=== PATIENT | female | born 2000 | race African-American/Black ===

== ENCOUNTER 2020-07-30 09:53 | Emergency (ER) | payer OTHER, SELFPAY ==
[2020-07-30] VITALS (7 sets, daily range): BP systolic 108–128; BP diastolic 71–87; PULSE 70–99; RESP 18; TEMP 36.6; O2SAT 96–100
--- NOTE | ~2020-07-30 | US_ITS ---
EXAMINATION: US OB <= 14 weeks fetus DATE: 07/30/2020 10:56 INDICATION: Recent . Nausea, vomiting and pain. Patient stopped bleeding. TECHNIQUE: Real-time transabdominal obstetric ultrasound. FINDINGS: No prior studies for comparison. The uterus measures 11.7 x 8.6 x 7.5 cm. There is an intrauterine gestational sac, with pole id entified. The crown rump length measures 3.46 cm, which correlates with a estimated gestational age of 10 weeks 3 days. heart tones are identified measuring 176. IMPRESSION: 1. SL IUP with an EGA of 10 weeks, 3 days (EDC by current ultrasound of 02/22/2021). Reviewed, dictated and finalized at location A. IMPRESSION: 1. SL IUP with an EGA of 10 weeks, 3 days (EDC by current ultrasound of 02/23/20).
[2020-07-30] MEDS: SODIUM CHLORIDE 0.9% IV 1,000 ML 999 ML IV CONT (10:21)
--- NOTE | 2020-07-30 10:34 | ED.NAVMDI ---
HPI - Nausea/Vomiting/Diarrhea General Chief complaint: Nausea/Vomiting/Diarrhea <Lisy Calvillo PA-C - Last Filed: 07/30/20 12:58> Stated complaint: n/v, weakness <Lisy Calvillo PA-C - Last Filed: 07/30/20 12:58> Time Seen by Provider: 07/30/20 10:03 <Lisy Calvillo PA-C - Last Filed: 07/30/20 12:58> Source: patient <ABBY Bar Last Filed: 07/30/20 12:58> Mode of arrival: ambulatory <ABBY Bar Last Filed: 07/30/20 12:58> Limitations: no limitations <Lisy Calvillo PA-C - Last Filed: 07/30/20 12:58> History of Present Illness HPI Narrative: This is a 19-year-old female that presents to the emergency department for nausea and vomiting x 10 days. Reports about 10 days ago she had a medically induced . Reports she was 9 weeks at the time. Reports since she is continued to have nausea and vomiting. Also reports pelvic cramping and continued intermittent vaginal bleeding. Her OB is Jumana at [facility] [place]. She had the at [facility]. Denies fever, dysuria, or hematuria. <Lisy Calvillo PA-C - Last Filed: 07/30/20 12:58> Related Data Allergies/Adverse reactions: Allergies Allergy/AdvReac Type Severity Reaction Status Date / Time No Known Allergies Allergy Verified 07/30/20 10:03 <Lisy Calvillo PA-C - Last Filed: 07/30/20 12:58> Review of Systems Review of Systems: Narrative: CONSTITUTIONAL: Denies fever GASTROINTESTINAL: Reports abdominal/pelvic pain, nausea, vomiting GENITOURINARY: Denies dysuria or hematuria. <Lisy Calvillo PA-C - Last Filed: 07/30/20 12:58> All systems reviewed & are unremarkable except as noted in HPI and below <ABBY Bar Last Filed: 07/30/20 12:58> [facility] Past Medical History Medical History: Medical History (Updated 07/30/20 @ 12:58 by Lisy Calvillo PA-C) No active medical problems <Lisy Calvillo PA-C - Last Filed: 07/30/20 12:58> Social History Social History: Social History (Updated 07/30/20 @ 10:40 by Lisy Calvillo PA-C) Substance use: never Gender identity (if verbalized by the patient): Female <Lisy Calvillo PA-C - Last Filed: 07/30/20 12:58> Exam Narrative: Exam Narrative: GENERAL: Well-appearing, well-nourished, and in no acute distress. HEAD: Normocephalic, atraumatic. EYES: EOMI. CHEST: Clear to auscultation. No respiratory distress. No wheezes rales or rhonchi HEART: Regular rate and rhythm. No murmur heard. Normal peripheral pulses. ABDOMEN: Soft, nondistended, normal active bowel sounds. Mild tenderness to palpation of the lower abd/pelvis without guarding. No CVA tenderness EXTREMITIES: Normal range of motion. No edema. SKIN: Warm, dry, no rash. NEURO: No focal deficits. Alert and oriented x3. PSYCH: Normal mood and affect PELVIC: Normal-appearing cervix. No active bleeding <Lisy Calvillo PA-C - Last Filed: 07/30/20 12:58> Course Consultations Consultation #1: Spoke with Dr. Jeong about patient and work-up who will follow-up in clinic if needed <Lisy Calvillo PA-C - Last Filed: 07/30/20 12:58> Date: 07/30/20 <Lisy Calvillo PA-C - Last Filed: 07/30/20 12:58> Time: 12:55 <Lisy Calvillo PA-C - Last Filed: 07/30/20 12:58> Vital Signs Vital signs: Vital Signs Temperature 36.6 C 07/30/20 10:02 Pulse Rate 99 07/30/20 10:02 Respiratory Rate 18 07/30/20 10:02 Blood Pressure 128/81 07/30/20 10:02 Pulse Oximetry 100 07/30/20 10:02 Temperature 36.6 C 07/30/20 11:08 Pulse Rate 72 07/30/20 13:16 Respiratory Rate 18 07/30/20 13:16 Blood Pressure 124/79 07/30/20 13:16 Pulse Oximetry 96 07/30/20 13:16 <Lisy Calvillo PA-C - Last Filed: 07/30/20 12:58> Vital Signs Temperature 36.6 C 07/30/20 10:02 Pulse Rate 99 07/30/20 10:02 Respiratory Rate 18 07/30/20 10:02 Blood Pressure 128/81 07/30/20 10:02 Pulse Ox
[2020-07-30 10:38] LABS: Basophils Percent Auto 0.6 % (0.2-1.2); Eosinophils Percent Auto 0.2 % (0-4.4); Hematocrit 37.4 % (37.0-47.0); Hemoglobin 12.7 g/dL (12.0-15.0); Immature Granulocyte Absolute 0.01 K/mm3 (0.00-0.031); Immature Granulocyte Percent A 0.2 % (0-0.5); Lymphocytes Absolute Auto 1.89 K/mm3 (0.9-3.2); Lymphocytes Percent Auto 37.5 % (18.3-44.2); Mean Corpuscular Hemoglobin 30.5 pg (26-34); Mean Corpuscular Volume 89.7 fl (80-100); Mean Platelet Volume 9.9 fl (7.4-10.4); Monocytes Absolute Auto 0.4 K/mm3 (0.1-0.6); Monocytes Percent Auto 6.9 % (2.6-8.5); Neutrophils Absolute Auto 2.8 K/mm3 (1.3-6.7); Neutrophils Percent Auto 54.6 % (45.5-73.1); Platelet Count Result 352 k/mm3 (150-375); Red Blood Count 4.17 M/mm3 (4.2-5.4); Red Cell Distribution Width 14.8 % (11.5-14.5)
[2020-07-30] MEDS: ONDANSETRON INJ 4 MG/2 ML VIAL IV PUSH (10:39)
[2020-07-30] MEDS: FAMOTIDINE 20 MG/2 ML VIAL IV PUSH (10:39)
[2020-07-30 10:42] LABS: Add Urine Microscopic? YES; Amorphous Sediment Urine Moderate; Appearance Urine Cloudy (Clear); Bacteria Urine Trace /hpf; Bilirubin Urine Negative (Negative); Blood Urine Negative (Negative); Color Urine Yellow (Yellow); Glucose Urine UA Negative (Negative); Ketones Urine Negative (Negative); Leukocyte Esterase Ur Negative LEU/UL (Negative); Mucus Urine Rare /lpf; Nitrate Urine Negative (Negative); Protein Urine 1+ mg/dL (Negative); Specific Grav Ur 1.018 (1.001-1.035); Squamous Epithelial Cell Urine Moderate /hpf (Few); Urobilinogen Urine Negative mg/dL (<2.0); WBC Urine 0-3 /hpf
[2020-07-30 11:31] LABS: Alanine Aminotransferase 8 U/L (4-35); Alkaline Phosphatase 44 U/L (38-126); Anion Gap 8 mmol/L (8-16); Aspartate Amino Transferase 17 U/L (14-36); Bilirubin,Total 0.4 mg/dL (0.2-1.3); Blood Urea Nitrogen 5 mg/dL (7-17); Calcium 8.5 mg/dL (8.4-10.2); Carbon Dioxide 24 mmol/L (22-30); Chloride 104 mmol/L (98-107); Estimated CRCL calculation 96 ml/min; Estimated Glomerular Filt Rate > 60; Glucose 73 mg/dL (65-105); Lipase 92 U/L (23-300); Potassium 3.6 mmol/L (3.4-5.0); Sodium 136 mmol/L (137-145)
[2020-07-30 12:12] LABS: INR 1.2; Partial Thromboplastin Time 28.8 SECONDS (22.3-36.8); Prothrombin Time 14.9 Seconds (11.1-14.7)
== END 2020-07-30 13:39 | disposition home or self-care (01) ==
PROVIDERS: Physician Assistant; Emergency Provider Emergency Medicine
DX: O21.9 Vomiting of pregnancy, unspecified (principal); Z3A.10 10 weeks gestation of pregnancy
CPT/HCPCS: 36415; 76801; 80053; 81001; 81025; 83690; 84702; 85025; 85461; 85610; 85730; 96361; 96374; 96375; 99284; J0131; J2405; J7030

== ENCOUNTER 2020-11-27 09:47 | Emergency (ER) | payer OTHER, SELFPAY ==
[2020-11-27 09:55] VITALS: BP 100/79; PULSE 93; RESP 18; TEMP 36.6; O2SAT 95
[2020-11-27] MEDS: cefTRIAXone 250 MG VIAL 500 MG IM (11:47)
--- NOTE | 2020-11-27 12:10 | ED.ABDPAIN ---
HPI - Abdominal Pain General Chief Complaint: Urogenital-Female Stated Complaint: std check Time Seen by Provider: 11/27/20 10:04 Source: patient Mode of arrival: ambulatory Limitations: no limitations History of Present Illness HPI narrative: Patient is a 20-year-old female who presents to emergency department for evaluation of concern for STD noting she had a partner that instructed her that he has been having drainage from the penis patient presents wanting testing and treating for STDs patient denies any symptoms or similar occurrence in the past patient was not using production patient has an IUD Related Data Home Medications Medication Instructions Recorded Confirmed No Home Medications 11/27/20 11/27/20 Allergies Allergy/AdvReac Type Severity Reaction Status Date / Time No Known Allergies Allergy Unverified 11/27/20 09:58 Review of Systems Review of Systems: All systems reviewed & are unremarkable except as noted in HPI and below PMFSH Past Medical History Medical History No active medical problems Social History Social History Substance use: never Gender identity (if verbalized by the patient): Female Exam Narrative: Exam Narrative: GENERAL: Well-appearing, well-nourished, and in no acute distress. HEAD: Normocephalic, atraumatic. EYES: PERRLA and EOMI. ENT: Nares clear, no rhinorrhea or epistaxis. Mucous membranes moist. CHEST: Clear to auscultation. No respiratory distress. No wheezes rales or rhonchi HEART: Regular rate and rhythm. No murmur heard. Normal peripheral pulses. ABDOMEN: Soft, nontender, nondistended FEMALE GENITOURINARY: Patient with odor and pink-tinged discharge in the vaginal vault otherwise unremarkable exam EXTREMITIES: Normal range of motion. No edema. SKIN: Warm, dry, no rash. NEURO: No focal deficits. Alert and oriented x3. PSYCH: Normal mood and affect. 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 Vital Signs Vital signs: Vital Signs Temperature 97.8 F 11/27/20 09:55 Pulse Rate 93 11/27/20 09:55 Respiratory Rate 18 11/27/20 09:55 Blood Pressure 100/79 11/27/20 09:55 Pulse Oximetry 95 11/27/20 09:55 Temperature 97.8 F 11/27/20 09:55 Pulse Rate 93 11/27/20 09:55 Respiratory Rate 18 11/27/20 09:55 Blood Pressure 100/79 11/27/20 09:55 Pulse Oximetry 95 11/27/20 09:55 MDM - Abdominal Pain MDM Narrative Medical decision making narrative: Patient with urethritis trichomoniasis will be discharged home with outpatient follow-up with gynecology given reasons to return afebrile nontoxic-appearing no distress was given Rocephin in the emergency department will be sent home doxycycline and Flagyl Lab Data Labs: Lab Results 11/27/20 11/27/20 Range/Units 10:22 10:22 C.trachomatis RNA (TMA) Pending N.gonorrhoeae RNA (TMA) Pending Trichomonas Direct ID Positive (Negative) Discharge Plan Discharge Clinical Impression: Trichomoniasis Patient Disposition: Home, Self-Care Condition: Stable Instructions: Antibiotic Form, Trichomoniasis (ED) Additional Instructions: Follow up with gynecology in the next 3 days for reevaluation and culture results Antibiotics as prescribed. Increase fluid intake. Tylenol and Motrin for pain and or fever if needed. Follow up with your doctor for further care. Call your doctor or return to the emergency department if needed for worsening symptoms or problems, especially if you have persistent high fever, vomiting, inability to urinate, weakness, blood in your urine, change in mental status, or other serious concerns. Prescriptions: New doxycycline hyclate 100 mg capsule 100 mg PO Q12H 7 Days Qty: 14 RF: 0 metronidazole [Flagyl] 500 mg tablet
[2020-11-27 12:30] VITALS: BP 108/78; PULSE 78; RESP 18; O2SAT 99
== END 2020-11-27 13:10 | disposition home or self-care (01) ==
PROVIDERS: Emergency Medicine Emergency Medical Services; Emergency Provider Emergency Medicine
DX: A59.03 Trichomonal cystitis and urethritis (principal); Z97.5 Presence of (intrauterine) contraceptive device
CPT/HCPCS: 81025; 87070; 87077; 87491; 87591; 87808; 96372; 99284; J0696

== ENCOUNTER 2022-10-30 09:38 | Emergency (ER) | payer OTHER, SELFPAY ==
[2022-10-30 09:54] VITALS: BP 94/67; PULSE 83; RESP 14; TEMP 37; O2SAT 100
--- NOTE | 2022-10-30 11:59 | ED.FEMALEGU ---
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 Patient states that she had unprotected sex with a new partner about a month ago and would like to be screened. She is not having any symptoms. Denies chance of . Related Data Home Medications Medication Instructions Recorded Confirmed No Home Medications 11/27/20 11/27/20 Allergies Allergy/AdvReac Type Severity Reaction Status Date / Time No Known Allergies Allergy Verified 10/30/22 11:13 Review of Systems Review of Systems: Gen: Denies fevers or chills Eyes: Denies eye pain or visual change ENT: Denies congestion Respiratory: Denies shortness of breath or cough CV: Denies chest pain or palpitations GI: Denies abdominal pain nausea, emesis or diarrhea denies burning, urgency, frequency or hematuria Musculoskeletal: Denies back pain or muscle pain Neuro: Denies numbness, tingling, weakness or focal weakness Skin: Denies rash Except as documented, all other systems reviewed and negative [facility] Past Medical History Medical History No active medical problems Social History Social History Substance use: never Gender identity (if verbalized by the patient): Female Exam Narrative: Gen: Alert oriented, no acute distress Eyes: EOMI, no icterus Pulm: Respirations even and unlabored, symmetric thorax expansion, no audible stridor or visible cyanosis CV: Regular rate per telemetry GI: No distension, no voluntary/involuntary guarding : scant amount of white vaginal discharge in the vaginal vault. No cervical friability or lesions. No cervical motion tenderness. Neuro: AOx4, moves all extremities without apparent difficulty or weakness, follows commands Skin: No jaundice, no visible bruising, rashes, lesions or wounds on exposed skin Psych: Normal mood/affect, insight/judgement good, adequate fund of knowledge, recent/remote memory intact Course Vital Signs Vital signs: Vital Signs Temperature 98.6 F 10/30/22 09:54 Pulse Rate 83 10/30/22 09:54 Respiratory Rate 14 10/30/22 09:54 Blood Pressure 94/67 L 10/30/22 09:54 Pulse Oximetry 100 10/30/22 09:54 Oxygen Delivery Room Air 10/30/22 09:54 Temperature 98.6 F 10/30/22 09:54 Pulse Rate 88 10/30/22 12:17 Respiratory Rate 14 10/30/22 12:17 Blood Pressure 101/66 10/30/22 12:17 Pulse Oximetry 97 10/30/22 12:17 Oxygen Delivery Room Air 10/30/22 09:54 MDM - Female Genitourinary MDM Narrative Medical decision making narrative: 22-year-old female here for STI check as she has had a new sexual partner. She is asymptomatic. Pelvic exam without evidence of PID; scant white discharge noted. Swabs were taken, patient understands she needs to follow-up on the results of these and will not be treated today given that she does not have symptoms. She is agreeable to the plan. Lab Data Labs: Lab Results 10/30/22 10/30/22 Range/Units 11:51 11:51 C.trachomatis RNA (TMA) Pending N.gonorrhoeae RNA (TMA) Pending Trichomonas Direct ID Negative (Negative) UCG Bedside Result Negative Reference Range: Negative Discharge Plan Discharge Clinical Impression: Encounter for screening for bacterial sexually transmitted disease Patient Disposition: Home, Self-Care Condition: Stable Instructions: Antibiotic Form, Safe Sex Practices (ED) Additional Instructions: You had tests for sexually transmitted diseases today. Please abstain from sexual intercourse until the results come back. These will come back in about 3 to 5 days, you will need to follow-up on the results of these portal and
[2022-10-30 12:17] VITALS: BP 101/66; PULSE 88; RESP 14; O2SAT 97
== END 2022-10-30 12:19 | disposition home or self-care (01) ==
PROVIDERS: Emergency Provider Physician Assistant; PCP Nurse Practitioner Adult Health
DX: Z11.3 Encounter for screening for infections with a predominantly sexual mode of transmission (principal)
CPT/HCPCS: 81025; 87070; 87077; 87491; 87591; 87808; 99284

== ENCOUNTER 2023-12-14 09:23 | Emergency (ER) | payer MEDICAID, SELFPAY ==
--- NOTE | ~2023-12-14 | XR_ITS ---
EXAMINATION: XR chest 2V DATE: 12/14/2023 11:18 INDICATION: Cough TECHNIQUE: PA and lateral views of the chest are obtained. COMPARISON: 07/10/2012 FINDINGS: The lungs are free of acute opacities. No pleural effusion or pneumothorax. The cardiomedia stinal silhouette is normal. There are 50 degrees of lower thoracic dextroscoliosis. IMPRESSION: 1. No acute cardiopulmonary abnormality. 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
[2023-12-14 09:35] VITALS: BP 114/78; PULSE 82; RESP 16; TEMP 36.4; O2SAT 100
[2023-12-14 10:30] LABS: Influenza A QL RT-PCR Negative (Negative); Influenza B QL RT-PCR Negative (Negative); RSV RNA, RT-PCR Negative (Negative); SARS-CoV-2 RNA PCR Negative (Negative)
[2023-12-14 11:30] VITALS: BP 111/82; PULSE 71; RESP 18; TEMP 36.3; O2SAT 100
--- NOTE | 2023-12-14 12:02 | ED.URI ---
HPI - URI/Sore Throat General Chief Complaint: Upper Respiratory Infection Stated Complaint: uri Time Seen by Provider: 12/14/23 11:03 Source: patient Mode of arrival: ambulatory Limitations: no limitations History of Present Illness HPI Narrative: This is a 23-year-old female that presents to the emergency department for cold symptoms present over the last couple of days. Reports rhinorrhea, congestion, sneezing, sore throat and cough. Reports similar symptoms in her child. Denies fevers or shortness of breath. Related Data Home Medications Medication Instructions Recorded Confirmed No Home Medications 11/27/20 11/27/20 Allergies Allergy/AdvReac Type Severity Reaction Status Date / Time No Known Allergies Allergy Verified 10/30/22 11:13 Review of Systems Review of Systems: CONSTITUTIONAL: Denies fever ENT: Reports rhinorrhea, congestion, sore throat RESPIRATORY: Reports cough. Denies dyspnea. All systems reviewed & are unremarkable except as noted in HPI and below PMFSH Past Medical History Medical History No active medical problems Social History Social History Substance use: never Gender identity (if verbalized by the patient): Female Exam Narrative: GENERAL: Well-appearing, well-nourished, and in no acute distress. HEAD: Normocephalic, atraumatic. EYES: EOMI. ENT: Nares clear, no rhinorrhea or epistaxis. Mucous membranes moist. Oropharynx with mild redness, without tonsillar hypertrophy, exudate or other lesions. Bilateral TMs pearly samson non-bulging NECK: Supple. No adenopathy or masses. CHEST: Clear to auscultation. No respiratory distress. No wheezes rales or rhonchi HEART: Regular rate and rhythm. No murmur heard. Normal peripheral pulses. EXTREMITIES: Normal range of motion. No edema. SKIN: Warm, dry, no rash. NEURO: No focal deficits. Alert and oriented x3. PSYCH: Normal mood and affect Course Course Emergency Course: Patient updated on her workup and agrees with plan of care Vital Signs Vital signs: Vital Signs Temperature 97.5 F L 12/14/23 09:35 Pulse Rate 82 12/14/23 09:35 Respiratory Rate 16 12/14/23 09:35 Blood Pressure 114/78 12/14/23 09:35 Pulse Oximetry 100 12/14/23 09:35 Oxygen Delivery Room Air 12/14/23 09:35 Temperature 97.4 F L 12/14/23 11:30 Pulse Rate 71 12/14/23 11:30 Respiratory Rate 18 12/14/23 11:30 Blood Pressure 111/82 12/14/23 11:30 Pulse Oximetry 100 12/14/23 11:30 Oxygen Delivery Room Air 12/14/23 11:29 MDM - URI/Sore Throat MDM Narrative Medical decision making narrative: Patient presents to the emergency department for cold symptoms present over the last couple of days. She is afebrile and nontoxic appearing. Her lungs are clear on exam. Oxygen saturation is normal on room air. Influenza, RSV, and COVID screens are negative. Chest x-ray without acute cardiopulmonary abnormality. Patient updated on her workup. Instructed on further care of viral infection. She is to follow up with primary provider. She was given warnings to return to the ER Differential Diagnosis Differential diagnosis: Likely upper respiratory infection, sinusitis, viral infection, influenza and other (COVID, RSV, pneumonia) Lab Data Attestation: I reviewed the patient's lab results. Labs: Lab Results 12/14/23 Range/Units 09:42 Influenza A (RT-PCR) Negative (Negative) Influenza B (RT-PCR) Negative (Negative) RSV (RT-PCR) Negative (Negative) SARS-CoV-2 RNA (RT-PCR) Negative (Negative) Critical Care Time Critical Care Time Critical Care Time: No Discharge Plan Discharge Clinical Impression: Upper respiratory infection Qualifiers: URI type: unspecified viral URI Qualified Code(s): J06.9 - Acute upper respiratory infection, unspecified Patient Disposition: H
== END 2023-12-14 12:35 | disposition home or self-care (01) ==
PROVIDERS: Emergency Medicine; Emergency Provider Physician Assistant; PCP Nurse Practitioner Adult Health
DX: J06.9 Acute upper respiratory infection, unspecified (principal); Z20.822 Contact with and (suspected) exposure to COVID-19
CPT/HCPCS: 71046; 87637; 99283

== ENCOUNTER 2024-02-09 16:29 | Emergency (ER) | payer MEDICAID, SELFPAY ==
[2024-02-09 16:33] VITALS: BP 107/79; PULSE 70; RESP 16; TEMP 36.6; O2SAT 100
[2024-02-09 18:54] VITALS: BP 128/85; PULSE 63; RESP 20; O2SAT 100
--- NOTE | 2024-02-09 18:57 | ED.ALCOHOL ---
HPI - Alcohol General Chief Complaint: Alcohol Stated Complaint: etoh poisoning Time Seen by Provider: 02/09/24 18:49 History of Present Illness HPI narrative: 23-year-old female presents to emergency department for concerns for alcohol poisoning. Patient states she drank 3 strawberry lemonade alcoholic drinks yesterday. States this morning she developed nausea, vomiting and diffuse intermittent abdominal cramping. States she had some abdominal cramping earlier but that has since resolved and she is no longer having abdominal pain. States she is having difficulty keeping down foods and drinks secondary to nausea and vomiting. She denies dysuria or hematuria, diarrhea, cough or congestion, fever, sore throat or otalgia. LMP 1 day ago. No prior abdominal surgeries. Related Data Allergies Allergy/AdvReac Type Severity Reaction Status Date / Time No Known Allergies Allergy Verified 02/09/24 16:36 Review of Systems Review of Systems: CONSTITUTIONAL: Denies fever, chills, or sweats. EYES: Denies visual changes, redness, or discharge. ENT: Denies rhinorrhea, congestion, sore throat, or otalgia. CARDIOVASCULAR: Denies chest pain, palpitations, or edema. RESPIRATORY: Denies cough or dyspnea. GASTROINTESTINAL: See HPI GENITOURINARY: Denies dysuria or hematuria. SKIN: Denies rash or itching. MUSCULOSKELETAL: Denies back pain, joint pain, or myalgia. NEUROLOGIC: Denies headache, numbness, or weakness. PSYCHIATRIC: Denies anxiety or depression. PMFSH Past Medical History Medical History No active medical problems Social History Social History Substance use: never Gender identity (if verbalized by the patient): Female Exam Narrative: GENERAL: Well-appearing, well-nourished, and in no acute distress. Nontoxic and well appearing on exam. HEAD: Normocephalic, atraumatic. EYES: PERRLA and EOMI. ENT: Nares clear, no rhinorrhea or epistaxis. Mucous membranes dry NECK: Supple. CHEST: Clear to auscultation. No respiratory distress. HEART: Regular rate and rhythm. No murmur heard. Normal peripheral pulses. ABDOMEN: Soft, nontender, nondistended, normal active bowel sounds. No rebound, guarding or rigidity. No CVA tenderness. EXTREMITIES: Normal range of motion. No edema. SKIN: Warm, dry, no rash. NEURO: No focal deficits. 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 She is reporting nausea and vomiting and diffuse intermittent abdominal cramping today. Vital stable. She is well-appearing and nontoxic exam, however does appear dry. Abdomen is soft and nontender. CBC is without leukocytosis. Chemistries show an AST of 48 ALT of 44. There is normal alk-phos and bilirubin. She has no tenderness in the right upper quadrant. UA with 3+ ketones, 3+ protein, 1+ bacteria. No wbc's, leuk esterase or nitrates. She denies signs or symptoms of UTI. Her lactic acid is normal at 1.1. negative. Labs and imaging discussed with patient and family at bedside. She received IV fluids, Zofran and Pepcid with significant improvement. She is tolerating p.o. intake. Feels she is safe for outpatient management. Will provide p.o. Zofran, encourage increased fluid intake and close follow-up with her PCP she has an ap
[2024-02-09] MEDS: ONDANSETRON INJ 4 MG/2 ML VIAL IV PUSH (19:12)
[2024-02-09] MEDS: FAMOTIDINE 20 MG/2 ML VIAL IV PUSH (19:12)
[2024-02-09] MEDS: SODIUM CHLORIDE 0.9% IV 1,000 ML 999 ML IV CONT (19:12)
[2024-02-09 19:19] LABS: Basophils Percent Auto 0.5 % (0.2-1.2); Hemoglobin 13.8 g/dL (12.0-15.0); Immature Granulocyte Absolute 0.01 K/mm3 (0.00-0.031); Immature Granulocyte Percent A 0.2 % (0-0.5); Lymphocytes Absolute Auto 1.23 K/mm3 (0.9-3.2); Lymphocytes Percent Auto 20.5 % (18.3-44.2); Mean Corpuscular HGB Conc 33.7 g/dl (32-36); Mean Corpuscular Hemoglobin 31.5 pg (26-34); Mean Corpuscular Volume 93.6 fl (80-100); Monocytes Absolute Auto 0.3 K/mm3 (0.1-0.6); Monocytes Percent Auto 4.2 % (2.6-8.5); Neutrophils Absolute Auto 4.5 K/mm3 (1.3-6.7); Neutrophils Percent Auto 74.6 % (45.5-73.1); Platelet Count Result 253 k/mm3 (150-375); Red Blood Count 4.38 M/mm3 (4.2-5.4); Red Cell Distribution Width 13.2 % (11.5-14.5)
[2024-02-09 19:28] LABS: Lactic Acid Reflex 1.1 mmol/L (0.7-2.0)
[2024-02-09 19:29] LABS: Alanine Aminotransferase 44 U/L (6-35); Albumin Level 4.8 g/dL (3.5-5.1); Alkaline Phosphatase 57 U/L (38-126); Anion Gap 8 mmol/L (4-12); Aspartate Amino Transferase 48 U/L (14-36); Bilirubin,Total 0.8 mg/dL (0.2-1.3); Blood Urea Nitrogen 13 mg/dL (7-17); Calcium 9.9 mg/dL (8.4-10.2); Carbon Dioxide 25 mmol/L (22-30); Chloride 108 mmol/L (98-107); Estimated CRCL calculation 72 ml/min; Estimated Glomerular Filt Rate > 60; Glucose 93 mg/dL (65-110); Lipase 53 U/L (23-300); Potassium 3.6 mmol/L (3.4-5.0); Sodium 141 mmol/L (137-145)
[2024-02-09 20:19] VITALS: BP 109/70; PULSE 76; RESP 20; O2SAT 100
[2024-02-09 20:51] LABS: Appearance Urine Cloudy (Clear); Bacteria Urine 1+ /hpf; Bilirubin Urine Negative (Negative); Blood Urine Negative (Negative); Color Urine Yellow (Yellow); Glucose Urine UA Negative (Negative); Ketones Urine 3+ mg/dL (Negative); Leukocyte Esterase Ur Negative LEU/UL (Negative); Nitrate Urine Negative (Negative); Non Pathogenic Casts 0-2; Protein Urine 3+ mg/dL (Negative); RBC Urine 0-2 /hpf (0-2); Squamous Epithelial Cell Urine Occasional /hpf (Few); WBC Urine 0-5 /hpf (0-3); pH Urine 6.5 (5.0-9.0)
[2024-02-09 20:57] LABS: Add Urine Microscopic? YES; Specific Grav Ur 1.033 (1.001-1.035)
[2024-02-09 21:36] VITALS: PULSE 66
== END 2024-02-09 21:36 | disposition home or self-care (01) ==
PROVIDERS: Emergency Provider Physician Assistant; Referring Provider Family Medicine
DX: K52.9 Noninfective gastroenteritis and colitis, unspecified (principal)
CPT/HCPCS: 36415; 80053; 81001; 81025; 83605; 83690; 85025; 96361; 96374; 96375; 99284; J2405; J7030